=== PATIENT | female | born 1960 | race Asian ===

== ENCOUNTER 2019-04-06 04:37 | Inpatient (IN) | payer OTHER ==
[~2019-04-06] VITALS: Ht 154.9 cm; Wt 51.3 kg
[2019-04-15 12:11] VITALS: BP 110/80
== END 2019-04-15 16:47 | disposition home or self-care (01) | DRG 871 ==
LOC: ED 07:13 → 3NE 07:14 → SUATTDRO 08:17 → ED 08:17 → 3NE 08:45 → ED 09:31 → 3NE 09:31 → 5SO 04-08 17:40 → CCU 04-10 06:37 → 4NOR 04-12 10:36
PROVIDERS: ADMIT Internal Medicine; ATTEND Internal Medicine
PROC: 0W9B3ZZ Drainage of Left Pleural Cavity, Percutaneous Approach (ICD-10-PCS; principal; 2019-04-09)
PROC: 0W993ZZ Drainage of Right Pleural Cavity, Percutaneous Approach (ICD-10-PCS; 2019-04-09)
PROC: 02HV33Z Insertion of Infusion Device into Superior Vena Cava, Percutaneous Approach (ICD-10-PCS; 2019-04-09)
PROC: B5181ZA Fluoroscopy of Superior Vena Cava using Low Osmolar Contrast, Guidance (ICD-10-PCS; 2019-04-09)
PROC: 30233N1 Transfusion of Nonautologous Red Blood Cells into Peripheral Vein, Percutaneous Approach (ICD-10-PCS; 2019-04-10)
PROC: 5A09357 Assistance with Respiratory Ventilation, Less than 24 Consecutive Hours, Continuous Positive Airway Pressure (ICD-10-PCS; 2019-04-10)
PROC: 0T9030Z Drainage of Right Kidney with Drainage Device, Percutaneous Approach (ICD-10-PCS; 2019-04-11)
DX: A41.51 Sepsis due to Escherichia coli [E. coli] (principal); J96.01 Acute respiratory failure with hypoxia; J18.9 Pneumonia, unspecified organism; N18.4 Chronic kidney disease, stage 4 (severe); N13.6 Pyonephrosis; E87.4 Mixed disorder of acid-base balance; N17.9 Acute kidney failure, unspecified; D62 Acute posthemorrhagic anemia; Z16.12 Extended spectrum beta lactamase (ESBL) resistance; K59.00 Constipation, unspecified; E83.42 Hypomagnesemia; E83.39 Other disorders of phosphorus metabolism; D69.6 Thrombocytopenia, unspecified; D63.8 Anemia in other chronic diseases classified elsewhere; D75.89 Other specified diseases of blood and blood-forming organs; I13.10 Hypertensive heart and chronic kidney disease without heart failure, with stage 1 through stage 4 chronic kidney disease, or unspecified chronic kidney disease; E53.8 Deficiency of other specified B group vitamins; E16.2 Hypoglycemia, unspecified; Z98.82 Breast implant status; Z93.6 Other artificial openings of urinary tract status; Z87.442 Personal history of urinary calculi; Z86.73 Personal history of transient ischemic attack (TIA), and cerebral infarction without residual deficits
CPT/HCPCS: 32555; 36415; 36600; 50432; 84145; 99285; J3490; J7613; 36430; 36573; 71045; 74176; 74177; 80048; 80053; 81001; 82607; 82728; 82803; 82962; 83540; 83550; 83605; 83735; 84100; 85014; 85018; 85025; 85027; 85610; 85730; 86850; 86900; 86923; 87040; 87077; 87081; 87086; 87186; 93306; 94640; 94660; 94667; 94668; 96374; C1894; G0378; J0696; J1100; J1170; J1335; J1650; J2020; J2185; J2405; J2704; J2710; J3010; J3360; J3475; J3480; J7070; Q9967; C1729; C1751; C1769; J1940; J2270; J3420; J7030; J7040; J7120; P9016

== ENCOUNTER 2019-04-21 17:56 | Inpatient (IN) | payer OTHER ==
[~2019-04-21] VITALS: Ht 152.4 cm; Wt 42.7 kg
[~2019-04-21 17:56] MED LIST: AMLO10TA8 PO; CYAN-27 PO; LOSA25TA25 PO; METO25TA91 PO
[2019-04-21] MEDS ORDERED: SODIUM CHLORIDE FLUSH 10ML SYR IVF ONE (18:30)
--- NOTE | 2019-04-21 18:59 | NUR ---
PT TO ED AFTER REFERRAL FROM ID FOR CRITICAL LOW HEMATOCRIT. PT STATES NO S/S EXCEPT FATIGUE. PT CONNECTED TO MONTIORS. VSS. NO NEEDS EXPRESSED. AWAITING EDMD ASSESSMENT.
--- NOTE | 2019-04-21 19:10 | NUR ---
blood drawn off picc by this rn with assistance from track repair laborer. pt tolerated well. vss. blood sent to lab.
--- NOTE | 2019-04-21 19:10 | NUR ---
Dr. Zapata to bs for assessment.
[2019-04-21 19:32] LABS: CALCIUM 8.4 mg/dL (8.5-10.1); CHLORIDE 112 mmol/L (98-107)
[2019-04-21 19:35] LABS: INTERNATIONAL NORMALIZED RATIO 0.96 (0.93-1.1); PROTHROMBIN TIME 10.1 Seconds (9.6-11.5)
[2019-04-21 19:36] LABS: ALANINE AMINOTRANSFERASE 27 U/L (12-78); ALBUMIN 2.2 g/dL (3.4-5.0); ALKALINE PHOSPHATASE 125 U/L (45-117); ANION GAP 8 mmol/L (5-15); BILIRUBIN,TOTAL 0.8 mg/dL (0.2-1.0); CREATININE 1.17 mg/dL (0.55-1.02); TOTAL PROTEIN 7.1 g/dL (6.4-8.2)
[2019-04-21 19:46] LABS: MEAN CORPUSCULAR HEMOGLOBIN 38.2 pg (27.0-34.8); MEAN CORPUSCULAR VOLUME 115.6 fL (80-100); MEAN PLATELET VOLUME 7.2 fL (7.4-10.4); PLATELET COUNT 365 x10^3/uL (130-400); RED BLOOD COUNT 1.74 x10^6/uL (3.82-5.3); RED CELL DISTRIBUTION WIDTH 18.8 % (9.6-15.2)
[2019-04-21 19:57] LABS: ANISOCYTOSIS 1+; BASOS#(MANUAL) 0.07 x10^3/uL (0-0.1); BASOS% (MANUAL) 1 % (0-1); LYMPH#(MANUAL) 0.72 x10^3/uL (1-3.4); LYMPHS% (MANUAL) 11 % (22-44); MD YES; MONOS#(MANUAL) 0.52 x10^3/uL (0.3-2.7); MONOS% (MANUAL) 8 % (2-9); SEGS% (MANUAL) 80 % (42-75)
[2019-04-21 19:58] LABS: <PLATELET ESTIMATE> ADEQUATE; <PLT MORPHOLOGY> NORMAL PLT MORPH
--- NOTE | 2019-04-21 20:12 | NUR ---
report to adan persaud. pt ready for transport.
--- NOTE | 2019-04-21 20:24 | NUR ---
pt resting in room with at . [facility].
[2019-04-21 21:00] VITALS: BP 108/78
[2019-04-21] MEDS: METOPROLOL SUCCINATE 25 MG TAB.ER.24H PO SCH (21:00)
[2019-04-21] MEDS ORDERED: POLYETHYLENE GLYCOL 17 GM PACKET PO PRN (21:00)
[2019-04-21] MEDS ORDERED: ONDANSETRON ODT 4 MG PO PRN (21:00)
[2019-04-21] MEDS ORDERED: ACETAMINOPHEN 325 MG TABLET PO PRN (21:00)
[2019-04-21] MEDS ORDERED: BISACODYL 10 MG SUPP PR PRN (21:00)
[2019-04-21 23:42] VITALS: BP 101/70
[2019-04-22] VITALS (12 sets, daily range): BP systolic 100–144; BP diastolic 70–87
[2019-04-22 06:38] LABS: MEAN CORPUSCULAR HEMOGLOBIN 33.4 pg (27.0-34.8); MEAN CORPUSCULAR HGB CONC 33.1 g/dL (32.4-35.8); MEAN CORPUSCULAR VOLUME 100.7 fL (80-100); MEAN PLATELET VOLUME 6.7 fL (7.4-10.4); PLATELET COUNT 330 x10^3/uL (130-400); RED BLOOD COUNT 2.95 x10^6/uL (3.82-5.3); RED CELL DISTRIBUTION WIDTH 23.9 % (9.6-15.2)
[2019-04-22 06:46] LABS: ALANINE AMINOTRANSFERASE 23 U/L (12-78); ALBUMIN 1.9 g/dL (3.4-5.0); ANION GAP 7 mmol/L (5-15); CALCIUM 8.3 mg/dL (8.5-10.1); CHLORIDE 115 mmol/L (98-107)
[2019-04-22 06:49] LABS: ALKALINE PHOSPHATASE 112 U/L (45-117); BILIRUBIN,TOTAL 1.4 mg/dL (0.2-1.0); TOTAL PROTEIN 6.3 g/dL (6.4-8.2)
[2019-04-22 08:23] LABS: MD YES
[2019-04-22 08:25] LABS: BAND#(MANUAL) 0.19 x10^3/uL; BANDS%(MANUAL) 3 % (0-7); BASOS#(MANUAL) 0.06 x10^3/uL (0-0.1); BASOS% (MANUAL) 1 % (0-1); EOS#(MANUAL) 0.06 x10^3/uL (0.0-0.4); EOS% (MANUAL) 1 % (1-7); LYMPH#(MANUAL) 0.56 x10^3/uL (1-3.4); LYMPHS% (MANUAL) 9 % (22-44); METAMYELOCYTES# (MANUAL) 0.06 x10^3/uL (0-0); METAMYELOCYTES% (MANUAL) 1 % (0-1); MONOS#(MANUAL) 0.37 x10^3/uL (0.3-2.7); MONOS% (MANUAL) 6 % (2-9); SEGS% (MANUAL) 79 % (42-75)
[2019-04-22 08:26] LABS: ANISOCYTOSIS 2+; POLYCHROMASIA 1+
[2019-04-22 08:27] LABS: <PLATELET ESTIMATE> ADEQUATE; <PLT MORPHOLOGY> NORMAL PLT MORPH
[2019-04-22] MEDS: ERTAPENEM 1 GM in SODIUM CHLORIDE 0.9% 50 ML IV SCH (08:48)
[2019-04-22] MEDS: CYANOCOBALAMIN 1,000 MCG TABLET PO SCH (08:48)
[2019-04-22] MEDS: SENNA/DOCUSATE TABLET PO SCH (08:48)
[2019-04-22] MEDS: METOPROLOL SUCCINATE 25 MG TAB.ER.24H PO SCH ×2 (08:48→21:01)
[2019-04-22] MEDS ORDERED: ERTAPENEM 1 GM in SODIUM CHLORIDE 0.9% 50 ML IV SCH (21:00)
[2019-04-23 02:16] VITALS: BP 115/73
[2019-04-23 04:31] LABS: ANION GAP 6 mmol/L (5-15); CALCIUM 8.5 mg/dL (8.5-10.1); CHLORIDE 116 mmol/L (98-107)
[2019-04-23 04:36] LABS: ALANINE AMINOTRANSFERASE 21 U/L (12-78); ALKALINE PHOSPHATASE 109 U/L (45-117); BILIRUBIN,TOTAL 1.1 mg/dL (0.2-1.0); CREATININE 1.21 mg/dL (0.55-1.02); TOTAL PROTEIN 6.4 g/dL (6.4-8.2)
[2019-04-23 04:55] LABS: MEAN CORPUSCULAR HEMOGLOBIN 34.7 pg (27.0-34.8); MEAN CORPUSCULAR HGB CONC 33.8 g/dL (32.4-35.8); MEAN CORPUSCULAR VOLUME 102.8 fL (80-100); MEAN PLATELET VOLUME 7.4 fL (7.4-10.4); PLATELET COUNT 320 x10^3/uL (130-400); RED BLOOD COUNT 2.86 x10^6/uL (3.82-5.3); RED CELL DISTRIBUTION WIDTH 23.7 % (9.6-15.2)
[2019-04-23 05:49] LABS: BASOPHILS # (AUTO) 0.05 x10^3/uL (0-0.1); BASOPHILS % (AUTO) 1 % (0-1); EOSINOPHILS # (AUTO) 0.07 x10^3/uL (0-0.4); EOSINOPHILS % (AUTO) 1 % (1-7); LYMPHOCYTES # (AUTO) 0.59 x10^3/uL (1-3.4); LYMPHOCYTES % (AUTO) 12 % (22-44); MD SCAN; MONOCYTES # (AUTO) 0.51 x10^3/uL (0.2-0.8); MONOCYTES % (AUTO) 11 % (2-9); NEUTROPHILS # (AUTO) 3.64 x10^3/uL (1.8-6.8); NEUTROPHILS % (AUTO) 75 % (42-75)
[2019-04-23 06:57] VITALS: BP 126/74
[2019-04-23] MEDS: SENNA/DOCUSATE TABLET PO SCH (09:00)
[2019-04-23] MEDS: CYANOCOBALAMIN 1,000 MCG TABLET PO SCH (09:27)
[2019-04-23] MEDS: ERTAPENEM 1 GM in SODIUM CHLORIDE 0.9% 50 ML IV SCH (09:27)
[2019-04-23] MEDS: METOPROLOL SUCCINATE 25 MG TAB.ER.24H PO SCH (09:28)
[2019-04-23] MEDS ORDERED: DOCUSATE 100 MG CAPSULE PO SCH (11:00)
[2019-04-23 11:38] LABS: OCCULT BLOOD NEGATIVE (NEGATIVE)
[2019-04-23] MEDS ORDERED: FERROUS SULFATE 325 MG TABLET PO SCH (12:00)
[2019-04-23] MEDS ORDERED: DOCU-131 PO (13:56)
[2019-04-23] MEDS ORDERED: ERTA1VIA IV (13:56)
[2019-04-23] MEDS ORDERED: FERR-51 PO (13:56)
[2019-04-23 15:04] VITALS: BP 126/89
== END 2019-04-23 15:56 | disposition home or self-care (01) | DRG 872 ==
LOC: ED 19:55 → EDIP 19:59 → 4NOR 20:35
PROVIDERS: ADMIT Internal Medicine; ATTEND Internal Medicine
PROC: 30233N1 Transfusion of Nonautologous Red Blood Cells into Peripheral Vein, Percutaneous Approach (ICD-10-PCS; principal; 2019-04-21)
DX: A41.51 Sepsis due to Escherichia coli [E. coli] (principal); E87.2 Acidosis; N12 Tubulo-interstitial nephritis, not specified as acute or chronic; N18.4 Chronic kidney disease, stage 4 (severe); E46 Unspecified protein-calorie malnutrition; Z68.1 Body mass index [BMI] 19.9 or less, adult; D53.9 Nutritional anemia, unspecified; D63.1 Anemia in chronic kidney disease; E53.8 Deficiency of other specified B group vitamins; D75.89 Other specified diseases of blood and blood-forming organs; T36.8X5A Adverse effect of other systemic antibiotics, initial encounter; D50.8 Other iron deficiency anemias; E87.6 Hypokalemia; D63.8 Anemia in other chronic diseases classified elsewhere; I12.9 Hypertensive chronic kidney disease with stage 1 through stage 4 chronic kidney disease, or unspecified chronic kidney disease; Z16.12 Extended spectrum beta lactamase (ESBL) resistance; Z87.442 Personal history of urinary calculi; Y92.098 Other place in other non-institutional residence as the place of occurrence of the external cause
CPT/HCPCS: 36415; 36430; 80053; 82272; 82607; 85025; 85610; 85730; 86850; 86860; 86870; 86880; 86900; 86902; 86922; 86923; 93005; G0378; J1335; P9016